=== PATIENT | female | born 1985 | race Caucasian/White ===

== ENCOUNTER 2019-08-20 12:23 | Emergency (ER) | payer SELFPAY ==
[~2019-08-20] VITALS: Ht 160 cm; Wt 73.5 kg
[2019-08-20 12:25] VITALS: Ht 160 cm; Wt 73.5 kg
[2019-08-20 14:28] VITALS: BP 132/78
== END 2019-08-20 14:50 | disposition home or self-care (01) ==
LOC: ED 12:23
DX: N76.0 Acute vaginitis (principal); Z20.2 Contact with and (suspected) exposure to infections with a predominantly sexual mode of transmission
CPT/HCPCS: 87491; 87591; J0696

== ENCOUNTER 2019-11-29 12:08 | Emergency (ER) | payer SELFPAY ==
[~2019-11-29] VITALS: Ht 162.6 cm; Wt 68.0 kg
[2019-11-29 12:12] VITALS: Ht 162.6 cm; Wt 68.0 kg
[2019-11-29 16:29] VITALS: BP 121/78
== END 2019-11-29 16:29 | disposition home or self-care (01) ==
LOC: ED 12:08
DX: J11.1 Influenza due to unidentified influenza virus with other respiratory manifestations (principal); F17.200 Nicotine dependence, unspecified, uncomplicated; Z87.19 Personal history of other diseases of the digestive system
CPT/HCPCS: 87804; 99406; J1885